=== PATIENT | male | born 1975 | race African-American/Black ===

== ENCOUNTER 2017-08-14 10:16 | Emergency (ER) | payer SELFPAY ==
[~2017-08-14] VITALS: Ht 188 cm; Wt 90.0 kg
[2017-08-14 10:23] VITALS: BP 133/74; PULSE 96; RESP 17; TEMP 98.7; O2SAT 98
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
[2017-08-14] MEDS ORDERED: ACETAMINOPHEN/HYDROcodone 325 MG/5 MG TAB PO ONE (11:00)
[2017-08-14] MEDS ORDERED: ONDANSETRON ODT 4 MG TAB PO ONE (11:00)
== END 2017-08-14 11:11 | disposition left against medical advice (07) ==
LOC: NEPD 10:16
DX: R51 Headache (principal); R42 Dizziness and giddiness
CPT/HCPCS: 99283

== ENCOUNTER 2017-09-20 14:56 | Emergency (ER) | payer SELFPAY ==
[~2017-09-20] VITALS: Ht 188 cm; Wt 86.0 kg
[2017-09-20 14:57] VITALS: BP 142/74; PULSE 109; RESP 20; TEMP 98.2; O2SAT 99
[2017-09-20] MEDS ORDERED: LEVEMIR SQ (15:48)
[2017-09-20] MEDS ORDERED: NOVOLOGP2 SQ (15:48)
[2017-09-20] MEDS ORDERED: CLIN300C5 PO (15:56)
[2017-09-20] MEDS ORDERED: NABU1TAB37 PO (15:56)
--- NOTE | 2017-09-20 15:56 | PD ---
HPI . Toothache Chief Complaint: Oral / Dental Pain or Problem Time Seen by Provider: 15:53 Travel History International Travel<30 days: No Contact w/Intl Traveler<30days: No Traveled to known affect area: No History of Present Illness HPI Patient presents with a toothache. He states that his tooth broke yesterday. He comes in now complaining with severe pain. No modifying factors. He states that he is [place]. PFSH Past Medical History Cardiovascular Problems: Yes (murmur) Diabetes: Yes Patient Takes Glucophage: No Social History Alcohol Use: No Tobacco Use: No Substance Use: No Allergies-Medications (Allergen,Severity, Reaction): Coded Allergies: Penicillins (Verified Allergy, Unknown, 08/14/17) Reported Meds & Prescriptions Reported Meds & Active Scripts Active Reported Novolog Inj (Insulin Aspart) 1,000 Unit/10 Ml Vial 1 SQ DIRECTED Sliding Scale as directed. Levemir Inj (Insulin Detemir) 1,000 unit/ 10 ML Vial 60 Units SQ BID Do not mix with any other Insulin. Review of Systems Except as stated in HPI: all other systems reviewed are Neg General / Constitutional: No: Fever, Chills HENT: Positive: Dental Difficulties Physical Exam Narrative GENERAL: Awake and alert and in no acute distress. SKIN: Warm and dry. HEAD: Normocephalic/atraumatic. ENT: His left upper canine tooth is rotten down to the gumline. The surrounding gum is not red or swollen. There is no facial swelling. EYES: Pupils are equal. Extraocular movements are intact. NECK: Normal range of motion. CARDIOVASCULAR: Regular rate and rhythm. RESPIRATORY: Nonlabored respirations. MUSCULOSKELETAL: Atraumatic. NEUROLOGICAL: Nonfocal. PSYCHIATRIC: Appropriate mood and affect. Data Data Last Documented VS Vital Signs Date Time Temp Pulse Resp B/P (MAP) Pulse Ox O2 Delivery O2 Flow Rate FiO2 09/20/17 14:57 98.2 109 20 142/74 (96) 99 Room Air MDM Medical Decision Making Medical Screen Exam Complete: Yes Emergency Medical Condition: Yes Differential Diagnosis Differential diagnosis of a toothache includes but is not limited to dental caries, dental abscess, gingivitis, drug-seeking behavior. Narrative Course Patient presents with a toothache. I will give him prescriptions for clindamycin and Relafen. I have told him that he needs to see a dentist. Diagnosis Primary Impression: Toothache Patient Instructions: General Instructions, Toothache (ED) Med/Other Pt SpecificInfo: Prescription(s) given Scripts Nabumetone (Nabumetone) 500 Mg Tab 500 MG PO BID for Pain-Inflammation, #60 TAB 0 Refills Prov: Jenna Jenkins MD 09/20/17 Clindamycin (Clindamycin) 300 Mg Cap 600 MG PO Q8H for Infection, #30 CAP 0 Refills Prov: Jenna Jenkins MD 09/20/17 Disposition: 01 DISCHARGE HOME Condition: Stable Jenna Jenkins MD Sep 20, 2017 15:56
== END 2017-09-20 16:12 | disposition home or self-care (01) ==
LOC: NEPK 14:56
DX: K08.89 Other specified disorders of teeth and supporting structures (principal); E11.9 Type 2 diabetes mellitus without complications; Z88.0 Allergy status to penicillin; Z79.4 Long term (current) use of insulin
CPT/HCPCS: 99284

== ENCOUNTER 2017-09-21 02:54 | Emergency (ER) | payer SELFPAY ==
[~2017-09-21] VITALS: Ht 190.5 cm; Wt 85.0 kg
[~2017-09-21 02:54] MED LIST: CLIN300C5 PO; LEVEMIR SQ; NABU1TAB37 PO; NOVOLOGP2 SQ
[2017-09-21 02:57] VITALS: BP 139/94; PULSE 100; RESP 16; TEMP 97.7; O2SAT 97
--- NOTE | 2017-09-21 03:43 | PD ---
HPI Chief Complaint: Psychiatric Symptoms Time Seen by Provider: 03:39 Travel History International Travel<30 days: No Contact w/Intl Traveler<30days: No Traveled to known affect area: No History of Present Illness HPI 42 black male presents to emergency department a voluntary basis for psychological evaluation. He has significant other just got here this week from [place]. Patient states that he is out of his psych medications. He has been self-medicating with crack cocaine. He also smokes marijuana on occasion and tobacco. Denies alcohol. Patient states that he is currently homeless and helpless. He has contemplated overdosing on IV heroin. He states that he no longer wants to live. He is tired of living day-to-day and wearing about what people are thinking about him as well as how his mother would feel. He states that his aunt just this year. He is also out of his medication for his neuropathy and diabetes. He is currently homeless. He denies any toxic ingestions. He complains of neuropathy in his feet. [facility] Past Medical History Narrative Medical Diabetes, neuropathy, anxiety, PTSD, bipolar Cardiovascular Problems: Yes (murmur) Diabetes: Yes Patient Takes Glucophage: Yes Immunizations Current: Yes Tetanus Vaccination: < 5 Years Influenza Vaccination: Yes Past Surgical History Surgical History: No Previous Surgery Social History Alcohol Use: No Tobacco Use: Yes Substance Use: Yes (crack yesterday) Allergies-Medications (Allergen,Severity, Reaction): Coded Allergies: Penicillins (Verified Allergy, Unknown, 09/21/17) Reported Meds & Prescriptions Reported Meds & Active Scripts Active No Active Prescriptions or Reported Medications Review of Systems General / Constitutional: No: Fever Eyes: No: Visual changes HENT: No: Headaches Cardiovascular: No: Chest Pain or Discomfort Respiratory: No: Shortness of Breath Gastrointestinal: No: Abdominal Pain Genitourinary: No: Dysuria Musculoskeletal: Positive: Pain (chronic neuropathy) Skin: No Rash Neurologic: Positive: Paresthesia, No: Weakness Psychiatric: Positive: Anxiety, Depression, Suicidal Ideations, Mood Disorder, Substance Abuse, No: Disorder of Thought, Homicidal Ideation Endocrine: No: Polydipsia Hematologic/Lymphatic: No: Easy Bruising Physical Exam Narrative GENERAL: Well-nourished, well-developed patient. SKIN: Warm and dry. HEAD: Normocephalic and atraumatic. EYES: No scleral icterus. No injection or drainage. ENT: No nasal drainage noted. Mucous membranes pink. Airway patent. NECK: Supple, trachea midline. Moves head freely without obvious discomfort. CARDIOVASCULAR: Regular rate and rhythm without murmurs, gallops, or rubs. RESPIRATORY: Breath sounds equal bilaterally. No accessory muscle use. GASTROINTESTINAL: Abdomen soft, non-tender, nondistended. EXTREMITIES: No cyanosis or edema. BACK: Nontender without obvious deformity. No CVA tenderness. NEURO: Patient is alert and oriented. no sensorimotor deficits. Nonfocal. Normal speech. PSYCH: No delusions. No auditory or visual hallucinations. Data Data Last Documented VS Vital Signs Date Time Temp Pulse Resp B/P (MAP) Pulse Ox O2 Delivery O2 Flow Rate FiO2 09/21/17 02:57 97.7 100 16 139/94 (109) 97 Room Air Orders Orders Complete Blood Count With Diff (09/21/17 03:31) Comprehensive Metabolic Panel (09/21/17 03:31) Psych Screen (09/21/17 03:31) Drug Screen, Random Urine (09/21/17 03:31) Alcohol (Ethanol) (09/21/17 03:31) Salicylates (Aspirin) (09/21/17 03:31) Tylenol (Acetaminophen) (09/21/17 03:31) Labs Laboratory Tests Test 09/21/17 03:40 White Blood Count 7.4 TH/MM3 Red Blood Count 4.92 MIL/MM3 Hemoglobin 15.0 GM/DL Hematocrit 43.2 % Mean Corpuscular Volume 87.8 FL Mean Corpuscular Hemoglobin 30.4 PG Mean Corpuscular Hemoglobin Concent 34.7 % Red Cell Distribution Width 13.9 % Platelet Count 308 TH/MM3 Mean Platelet Volume 8.1 FL Neutrophils (%) (Auto) 57.4 % Lymphocytes (%) (Auto) 30.8 % Monocytes (%) (Auto) 10.3 % Eosinophils (%) (Auto) 0.7 % Basophils (%) (Auto) 0.8 % Neutrophils # (Auto) 4.2 TH/MM3 Lymphocytes # (Auto) 2.3 TH/MM3 Monocytes # (Auto) 0.8 TH/MM3 Eosinophils # (Auto) 0.1 TH/MM3 Basophils # (Auto) 0.1 TH/MM3 CBC Comment DIFF FINAL Differential Comment Blood Urea Nitrogen 18 MG/DL Creatinine 0.83 MG/DL Random Glucose 295 MG/DL Total Protein 8.3 GM/DL Albumin 4.3 GM/DL Calcium Level 9.0 MG/DL Alkaline Phosphatase 76 U/L Aspartate Amino Transf (AST/SGOT) 13 U/L Alanine Aminotransferase (ALT/SGPT) 18 U/L Total Bilirubin 0.5 MG/DL Sodium Level 136 MEQ/L Potassium Level 3.3 MEQ/L Chloride Level 98 MEQ/L Carbon Dioxide Level 28.9 MEQ/L Anion Gap 9 MEQ/L Estimat Glomerular Filtration Rate 122 ML/MIN Urine Opiates Screen NEG Acetaminophen Level LESS THAN 2.0 MCG/ML Urine Barbiturates Screen NEG Urine Amphetamines Screen NEG Urine Benzodiazepines Screen NEG Urine Cocaine Screen POS Urine Cannabinoids Screen POS Ethyl Alcohol Level LESS THAN 3 MG/DL MDM Medical Decision Making Medical Screen Exam Complete: Yes Emergency Medical Condition: Yes Medical Record Reviewed: Yes Interpretation(s) Laboratory Tests Test 09/21/17 03:40 White Blood Count 7.4 TH/MM3 Red Blood Count 4.92 MIL/MM3 Hemoglobin 15.0 GM/DL Hematocrit 43.2 % Mean Corpuscular Volume 87.8 FL Mean Corpuscular Hemoglobin 30.4 PG Mean Corpuscular Hemoglobin Concent 34.7 % Red Cell Distribution Width 13.9 % Platelet Count 308 TH/MM3 Mean Platelet Volume 8.1 FL Neutrophils (%) (Auto) 57.4 % Lymphocytes (%) (Auto) 30.8 % Monocytes (%) (Auto) 10.3 % Eosinophils (%) (Auto) 0.7 % Basophils (%) (Auto) 0.8 % Neutrophils # (Auto) 4.2 TH/MM3 Lymphocytes # (Auto) 2.3 TH/MM3 Monocytes # (Auto) 0.8 TH/MM3 Eosinophils # (Auto) 0.1 TH/MM3 Basophils # (Auto) 0.1 TH/MM3 CBC Comment DIFF FINAL Differential Comment Blood Urea Nitrogen 18 MG/DL Creatinine 0.83 MG/DL Random Glucose 295 MG/DL Total Protein 8.3 GM/DL Albumin 4.3 GM/DL Calcium Level 9.0 MG/DL Alkaline Phosphatase 76 U/L Aspartate Amino Transf (AST/SGOT) 13 U/L Alanine Aminotransferase (ALT/SGPT) 18 U/L Total Bilirubin 0.5 MG/DL Sodium Level 136 MEQ/L Potassium Level 3.3 MEQ/L Chloride Level 98 MEQ/L Carbon Dioxide Level 28.9 MEQ/L Anion Gap 9 MEQ/L Estimat Glomerular Filtration Rate 122 ML/MIN Urine Opiates Screen NEG Acetaminophen Level LESS THAN 2.0 MCG/ML Urine Barbiturates Screen NEG Urine Amphetamines Screen NEG Urine Benzodiazepines Screen NEG Urine Cocaine Screen POS Urine Cannabinoids Screen POS Ethyl Alcohol Level LESS THAN 3 MG/DL Differential Diagnosis MDM: High Differential diagnoses: Schizophrenia, schizoaffective disorder, bipolar, anxiety, depression, adjustment reaction, mood disorder NOS, ODD, depressive disorder NOS, dementia, dementia with agitation, psychosis NOS, substance induced mood disorder, DMDD, Asperger syndrome, infection,electrolyte abnormality, malingering. Narrative Course Mental health screening discussed with the patient. Psychiatric screen ordered. Patient is been medically cleared. This is medical clearance for psychiatric admission, polysubstance abuse Diagnosis Primary Impression: Medical clearance for psychiatric admission Additional Impression: Polysubstance abuse Patient Instructions: General Instructions Scripts No Active Prescriptions or Reported Meds Condition: Stable Navarro Villalpando Sep 21, 2017 03:43
[2017-09-21 04:06] LABS: ALT (GPT) 18 U/L (12-78); ANION GAP 9 MEQ/L (5-15); AST (GOT) 13 U/L (15-37); BICARBONATE 28.9 MEQ/L (21.0-32.0); BLOOD UREA NITROGEN 18 MG/DL (7-18); CHLORIDE 98 MEQ/L (98-107); GLOMERULAR FILTRATION RATE 122 ML/MIN (>89); POTASSIUM 3.3 MEQ/L (3.5-5.1); SODIUM (NA) 136 MEQ/L (136-145)
[2017-09-21 04:08] LABS: AUTOMATED NEUTROPHIL # 4.2 TH/MM3 (1.8-7.7); BASOPHIL # 0.1 TH/MM3 (0-0.2); BASOPHIL % 0.8 % (0.0-2.0); EOSINOPHIL # 0.1 TH/MM3 (0-0.4); EOSINOPHIL % 0.7 % (0.0-4.0); HEMATOCRIT 43.2 % (39.0-51.0); HEMO FLAGS DIFF FINAL; LYMPH % 30.8 % (9.0-44.0); LYMPHOCYTE # 2.3 TH/MM3 (1.0-4.8); MEAN CELL VOLUME 87.8 FL (80.0-100.0); MEAN CORPUSCULAR HEMOGLOBIN 30.4 PG (27.0-34.0); MEAN CORPUSCULAR HGB CONC 34.7 % (32.0-36.0); MONO % 10.3 % (0.0-8.0); NEUT % 57.4 % (16.0-70.0); PLATELET COUNT 308 TH/MM3 (150-450); RED BLOOD COUNT 4.92 MIL/MM3 (4.50-5.90); RED CELL DISTRIBUTION WIDTH 13.9 % (11.6-17.2); WHITE BLOOD COUNT 7.4 TH/MM3 (4.0-11.0)
[2017-09-21 04:09] LABS: ALKALINE PHOSPHATASE 76 U/L (45-117); TOTAL BILIRUBIN ADULT 0.5 MG/DL (0.2-1.0)
[2017-09-21 04:25] LABS: ACETAMINOPHEN LESS THAN 2.0 MCG/ML (10.0-30.0); ALCOHOL LESS THAN 3 MG/DL (0-5)
--- NOTE | 2017-09-21 17:13 | PD ---
Physical Exam Date Seen by Provider: Sep 21, 2017 Time Seen by Provider: 17:08 Data Data Last Documented VS Vital Signs Date Time Temp Pulse Resp B/P (MAP) Pulse Ox O2 Delivery O2 Flow Rate FiO2 09/21/17 02:57 97.7 100 16 139/94 (109) 97 Room Air Orders Orders Complete Blood Count With Diff (09/21/17 03:31) Comprehensive Metabolic Panel (09/21/17 03:31) Psych Screen (09/21/17 03:31) Drug Screen, Random Urine (09/21/17 03:31) Alcohol (Ethanol) (09/21/17 03:31) Salicylates (Aspirin) (09/21/17 03:31) Tylenol (Acetaminophen) (09/21/17 03:31) Diet Regular Basic (09/21/17 Breakfast) Diet Regular Basic (09/21/17 Lunch) Ed Discharge Order (09/21/17 17:08) Labs Laboratory Tests Test 09/21/17 03:40 White Blood Count 7.4 TH/MM3 Red Blood Count 4.92 MIL/MM3 Hemoglobin 15.0 GM/DL Hematocrit 43.2 % Mean Corpuscular Volume 87.8 FL Mean Corpuscular Hemoglobin 30.4 PG Mean Corpuscular Hemoglobin Concent 34.7 % Red Cell Distribution Width 13.9 % Platelet Count 308 TH/MM3 Mean Platelet Volume 8.1 FL Neutrophils (%) (Auto) 57.4 % Lymphocytes (%) (Auto) 30.8 % Monocytes (%) (Auto) 10.3 % Eosinophils (%) (Auto) 0.7 % Basophils (%) (Auto) 0.8 % Neutrophils # (Auto) 4.2 TH/MM3 Lymphocytes # (Auto) 2.3 TH/MM3 Monocytes # (Auto) 0.8 TH/MM3 Eosinophils # (Auto) 0.1 TH/MM3 Basophils # (Auto) 0.1 TH/MM3 CBC Comment DIFF FINAL Differential Comment Blood Urea Nitrogen 18 MG/DL Creatinine 0.83 MG/DL Random Glucose 295 MG/DL Total Protein 8.3 GM/DL Albumin 4.3 GM/DL Calcium Level 9.0 MG/DL Alkaline Phosphatase 76 U/L Aspartate Amino Transf (AST/SGOT) 13 U/L Alanine Aminotransferase (ALT/SGPT) 18 U/L Total Bilirubin 0.5 MG/DL Sodium Level 136 MEQ/L Potassium Level 3.3 MEQ/L Chloride Level 98 MEQ/L Carbon Dioxide Level 28.9 MEQ/L Anion Gap 9 MEQ/L Estimat Glomerular Filtration Rate 122 ML/MIN Salicylates Level 4.0 MG/DL Urine Opiates Screen NEG Acetaminophen Level LESS THAN 2.0 MCG/ML Urine Barbiturates Screen NEG Urine Amphetamines Screen NEG Urine Benzodiazepines Screen NEG Urine Cocaine Screen POS Urine Cannabinoids Screen POS Ethyl Alcohol Level LESS THAN 3 MG/DL MDM Medical Record Reviewed: Yes Supervised Visit with ANA PAULA: No Narrative Course 42-year-old male presented to the emergency room yesterday voluntarily for evaluation of suicidal ideation. He was medically cleared for psychiatric evaluation. He presented to the ED with his significant other who had similar complaint. He is also requesting detox. He is currently homeless which may be a motivating factor for presentation. He was just here one week ago for unrelated complaint. Suspicion for malingering. Blood work is essentially unremarkable except for hyperglycemia. Patient is known diabetic. Vital signs stable. Patient was seen by the psychiatric nurse and given a packet of resources for outpatient follow-up. He is stable for discharge. Diagnosis Primary Impression: Polysubstance abuse Referrals: Psychiatrist Patient Instructions: General Instructions Additional Instruction: Follow up per psychiatric nurse's recommendations. Use packet provided. Scripts No Active Prescriptions or Reported Meds Disposition: 01 DISCHARGE HOME Condition: Stable Ashley Rivera Sep 21, 2017 17:13
== END 2017-09-21 17:39 | disposition home or self-care (01) ==
LOC: NEPD 02:54
DX: F19.10 Other psychoactive substance abuse, uncomplicated (principal); E11.40 Type 2 diabetes mellitus with diabetic neuropathy, unspecified; Z59.0 Homelessness; Z72.0 Tobacco use
CPT/HCPCS: 80053; 80307; 85025; 99283